=== PATIENT | female | born 1965 | race American Indian/Alaskan Native ===

== ENCOUNTER 2019-09-13 10:09 | Outpatient (CLI) | payer BC ==
--- NOTE | 2019-09-13 14:30 | Ultrasound Report ---
LIMITED BILATERAL BREAST ULTRASOUND HISTORY: Bilateral retroareolar mammographic asymmetries. COMPARISON: 08/26/2019 and 07/27/2019 mammograms. FINDINGS: Focused sonographic evaluation upon the retroareolar location of the right breast demonstra cuong an oval relatively smooth circumscribed subareolar mass at 12:00 measuring 6 x 5 x 4 mm. It conta ins 3 echogenic reflectors which may be calcifications. Focused sonographic evaluation upon the retroareolar location of the left breast demonstrates mild du ct ectasia and a questionable intraductal oval isoechoic mass at 4:00 subareolar measuring 6 x 3 mm. IMPRESSION: Bilateral 6 mm subareolar masses. Recommend bilateral vacuum assisted ultrasound-guided n eedle biopsy. BIRADS 4: Suspicious abnormality. Signer Name: Wagner Cornejo MD Signed: 09/13/2019 2:25 PM Workstation Name: [id number]
== END 2019-09-13 10:10 | disposition home or self-care (01) ==
LOC: SPVWC 10:09
PROVIDERS: ATTEND Surgery
DX: R92.8 Other abnormal and inconclusive findings on diagnostic imaging of breast (principal); N63.42 Unspecified lump in left breast, subareolar; N63.41 Unspecified lump in right breast, subareolar

== ENCOUNTER 2019-10-04 08:54 | Outpatient (CLI) | payer BC ==
--- NOTE | 2019-10-04 10:11 | Mammography Report ---
LEFT DIGITAL DIAGNOSTIC MAMMOGRAM CLINICAL: For clip placement after ultrasound-guided vacuum assisted biopsy. COMPARISON: 08/26/2019 FINDINGS: A biopsy clip is identified retroareolar at 6:00. IMPRESSION: Concordant clip deployment. Signer Name: Wagner Corenjo MD Signed: 10/04/2019 10:07 AM Workstation Name: [id number]
--- NOTE | 2019-10-04 12:06 | Ultrasound Report ---
ULTRASOUND-GUIDED VACUUM-ASSISTED NEEDLE CORE BIOPSY LEFT BREAST WITH CLIP PLACEMENT CLINICAL: Subareolar mass which is possibly intraductal. FINDINGS: The procedure was explained to the patient and informed consent was obtained. Ultrasound demonstrated the previously identified subareolar lesion.. I marked the breast with a felt tip marker and a timeout was called. The skin was prepped with Chloro -Prep and anesthetized with 1% lidocaine. Vacuum-assisted needle core biopsy was performed through tiny dermatotomy using ultrasound guidance, 2% lidocaine with epinephrine for deep anesthesia and a 13-gauge Mammotome Elite biopsy device. 5 cor es were obtained and placed in formalin. The lesion completely disappeared and a hydromark clip was d eployed at the site of the lesion. The patient tolerated the procedure well and there were no apparent complications. Hemostasis was ach ieved with minimal effort and a sterile dressing was applied. A post procedure mammogram demonstrated concordant clip deployment. She left the department in good c ondition and was given instructions for wound care and follow-up. IMPRESSION: Uncomplicated ultrasound guided needle core biopsy with clip placement left breast. Signer Name: Wagner Cornejo MD Signed: 10/04/2019 12:02 PM Workstation Name: [id number]
== END 2019-10-04 08:55 | disposition home or self-care (01) ==
LOC: SPVWC 08:54
PROVIDERS: ATTEND Surgery
DX: N63.20 Unspecified lump in the left breast, unspecified quadrant (principal); R92.8 Other abnormal and inconclusive findings on diagnostic imaging of breast
CPT/HCPCS: 88305

== ENCOUNTER 2019-10-11 08:33 | Outpatient (CLI) | payer BC ==
--- NOTE | 2019-10-11 09:55 | Ultrasound Report ---
ULTRASOUND-GUIDED VACUUM-ASSISTED NEEDLE CORE BIOPSY RIGHT BREAST WITH CLIP PLACEMENT CLINICAL: A 6 mm subareolar mass. FINDINGS: The procedure was explained to the patient and informed consent was obtained. Ultrasound demonstrated the previously identified lesion. I marked the breast with a felt tip marker and a timeout was called. The skin was prepped with Chloro -Prep and anesthetized with 1% lidocaine. Vacuum-assisted needle core biopsy was performed through tiny dermatotomy using ultrasound guidance, 2% lidocaine with epinephrine for deep anesthesia and a 13-gauge Mammotome Elite biopsy device. Appro ximately 7 cores were obtained and placed in formalin. The lesion disappeared and a clip was deployed at the site. The patient tolerated the procedure well and there were no apparent complications. Hemo stasis was achieved with minimal effort and a sterile dressing was applied. A post procedure mammogram demonstrated concordant clip deployment. She left the department in good c ondition and was given instructions for wound care and follow-up. IMPRESSION: Uncomplicated ultrasound guided needle core biopsy with clip placement right breast. Signer Name: Wagner Cornejo MD Signed: 10/11/2019 9:50 AM Workstation Name: [id number]
--- NOTE | 2019-10-11 11:38 | Mammography Report ---
RIGHT DIGITAL DIAGNOSTIC MAMMOGRAM CLINICAL: For clip placement after vacuum-assisted ultrasound-guided needle biopsy. COMPARISON: 08/26/2019 FINDINGS: A subareolar biopsy clip correlates with the biopsy site. However, the clip is closer to th e nipple and more lateral than the original mammographic density which is less prominent on this exam . I suspect discordance between the original mammographic finding and the ultrasound finding. IMPRESSION: Satisfactory clip deployment. Signer Name: Wagner Cornejo MD Signed: 10/11/2019 11:33 AM Workstation Name: [id number]
== END 2019-10-11 08:34 | disposition home or self-care (01) ==
LOC: SPVWC 08:33
PROVIDERS: ATTEND Surgery
DX: N63.13 Unspecified lump in the right breast, lower outer quadrant (principal); R92.8 Other abnormal and inconclusive findings on diagnostic imaging of breast
CPT/HCPCS: 88305